=== PATIENT | male | born 1990 | race Caucasian/White ===

== ENCOUNTER 2021-03-23 02:39 | Emergency (ER) | payer OTHER ==
[~2021-03-23] VITALS: Ht 182.9 cm; Wt 90.0 kg
[2021-03-23 02:51] VITALS: BP 127/91
[2021-03-23] MEDS ORDERED: ondansetron 4mg rapidly disintigrating tab PO ONE (02:55)
[2021-03-23] MEDS ORDERED: ONDA4TAB6 PO (03:40)
== END 2021-03-23 04:03 | disposition home or self-care (01) ==
LOC: ER 02:39
DX: U07.1 COVID-19 (principal); K29.70 Gastritis, unspecified, without bleeding; Z79.899 Other long term (current) drug therapy
CPT/HCPCS: 99283

== ENCOUNTER 2021-03-26 10:58 | Emergency (ER) | payer OTHER ==
[~2021-03-26] VITALS: Ht 182.9 cm; Wt 190.0 kg
[~2021-03-26 10:58] MED LIST: ONDA4TAB6 PO
[2021-03-26 11:13] VITALS: BP 120/98
[2021-03-26] MEDS ORDERED: DEXA6TAB6 PO (11:34)
[2021-03-26] MEDS ORDERED: OMEP20TA23 PO (11:34)
[2021-03-26] MEDS ORDERED: ondansetron 4mg/5ml UD cup PO ONE (11:40)
[2021-03-26] MEDS ORDERED: ondansetron 4mg rapidly disintigrating tab PO ONE (11:45)
== END 2021-03-26 15:55 | disposition left against medical advice (07) ==
LOC: ER 10:58
DX: U07.1 COVID-19 (principal); K29.70 Gastritis, unspecified, without bleeding; Z79.899 Other long term (current) drug therapy
CPT/HCPCS: 99283